=== PATIENT | female | born 1960 | race Caucasian/White ===

== ENCOUNTER 2019-02-10 07:35 | Outpatient (CLI) | payer OTHER ==
--- NOTE | 2019-02-10 08:00 | RAD ---
Left wrist 3 views HISTORY: Fall. Left wrist injury. FINDINGS: Comminuted predominantly oblique fracture of the distal left radial metaphysis with signifi cant impaction and resultant dorsal tilt. A coronally oriented intra-articular component extends to the dorsal aspect of the articular surface of the distal radius. Inclination is maintained. Ununited ossification at the ulnar styloid where acute fracture is not suspected. Mild degenerative changes about the wrist. IMPRESSION: Comminuted, intra-articular dorsally angulated fracture of the distal left radius.
== END 2019-02-10 07:36 | disposition home or self-care (01) ==
LOC: BICRAD 07:35
PROVIDERS: ATTEND Family Medicine
DX: S62.102D Fracture of unspecified carpal bone, left wrist, subsequent encounter for fracture with routine healing (principal); S52.502A Unspecified fracture of the lower end of left radius, initial encounter for closed fracture

== ENCOUNTER 2022-02-14 10:26 | Outpatient (CLI) | payer BC | END 2022-02-14 10:27 | disposition home or self-care (01) | LOC: BICMAMMO 10:26 | PROVIDERS: ATTEND Obstetrics & Gynecology | DX: R92.8 Other abnormal and inconclusive findings on diagnostic imaging of breast (principal); N63.22 Unspecified lump in the left breast, upper inner quadrant | CPT/HCPCS: G0279 ==

== ENCOUNTER 2023-08-27 11:49 | Outpatient (CLI) | payer BC | END 2023-08-27 11:50 | disposition home or self-care (01) | LOC: BICMAMMO 11:49 | PROVIDERS: ATTEND Obstetrics & Gynecology | DX: Z12.31 Encounter for screening mammogram for malignant neoplasm of breast (principal); N63.20 Unspecified lump in the left breast, unspecified quadrant; N63.10 Unspecified lump in the right breast, unspecified quadrant; Z80.3 Family history of malignant neoplasm of breast | CPT/HCPCS: 77063; 77067 ==

== ENCOUNTER 2023-09-29 10:54 | Outpatient (CLI) | payer BC | END 2023-09-29 10:55 | disposition home or self-care (01) | LOC: BICULT 10:54 | PROVIDERS: ATTEND Obstetrics & Gynecology | DX: N63.10 Unspecified lump in the right breast, unspecified quadrant (principal); N63.20 Unspecified lump in the left breast, unspecified quadrant ==